=== PATIENT | female | born 1955 | race Hispanic/Latino ===

== ENCOUNTER 2017-01-01 11:46 | Outpatient (CLI) | payer MEDICAID ==
--- NOTE | 2017-01-01 13:32 | Mammography Report ---
BILATERAL DIGITAL SCREENING MAMMOGRAM with CAD : 01/01/17 11:46:00 CLINICAL: Routine screening. COMPARISON:Recent PAGE right mammograms and right breast ultrasound. FINDINGS: The breasts are heterogeneously dense, which may obscure small masses.An oval smooth circumscribed 1.5 cm density at 8 o'clock correlates with the previously documented cyst. No mass, architectural distortion or suspicious calcifications. IMPRESSION: No mammographic evidence of malignancy. BI-RADS CATEGORY: 2 -- Benign RECOMMENDATION: Routine mammographic screening in one year. COMMENT: Patient follow-up letters are generated by our [employer] application.
== END 2017-01-01 11:47 | disposition home or self-care (01) ==
LOC: SPVIMAG 11:46
PROVIDERS: ATTEND Surgery
DX: Z12.31 Encounter for screening mammogram for malignant neoplasm of breast (principal); I10 Essential (primary) hypertension; J45.909 Unspecified asthma, uncomplicated; F17.200 Nicotine dependence, unspecified, uncomplicated
CPT/HCPCS: 77067; G0202